=== PATIENT | female | born 1970 | race Caucasian/White ===

== ENCOUNTER 2025-07-24 21:59 | Emergency (ER) | payer OTHER, SELFPAY ==
--- OUTSIDE RECORDS SUMMARY | 2025-03-07 04:00 | XMS_ITS ---
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 Medication SIG (Take, Route, Frequency, Duration) Notes Start Date End Date Status Benadryl Active Encounters Encounter Location Date Provider Diagnosis [facility] [address] [place] [address] 03/07/2025 Karen Molina Plan Of Treatment Next Appt Details Provider Name:Karen bassett, 08/04/2025 01:00:00 PM, [facility] [address], [address], Provider Name:Karen bassett, 08/04/2025 01:10:00 PM, [address], [facility] [address], [place], [address], Provider Name:Karen bassett, 08/10/2026 01:00:00 PM, [address], [employer] [address], [place], [address], Progress Notes * MICA MUNOZDODavon:1970 (55 yo F)Acc No.[id number]:03/07/2025 PROGRESS NOTES Patient: MICA BRADEN Appointment Provider: Mikayla Molina M.D. :1970 A ge:55 Y S ex:Female Date:03/07/2025 Address:[address] [place], [place] [id number] Pcp:ELSA SOTOMAYOR MD Subjective: * Chief Complaints: * 1 . 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 * Medical History: * Medications: T aking Benadryl Objective: * Vitals: Assessment: Plan: * Treatment: * Images: Billing Information: * Visit Code: * Procedure Codes: * Electronic signature of Nayeli Molina MD on 07/25/2025 at 01:26 AM EDT Sign off status: Pending * Appointment Provider: Mikayla Molina M.D. Date: 0 03/07/2025 Generated for Carmine torres/Karen/Laya on: 1 01:26 AM EDT
[2025-07-24 22:10] VITALS: BP 147/85; PULSE 87; RESP 18; TEMP 36.8; O2SAT 97; BMI 33.1
[2025-07-24 22:26] LABS: MANUAL DIFF FLAG NO
[2025-07-24 22:27] LABS: Hematocrit 38.8 % (37.0-47.0); Hemoglobin 13.4 g/dl (12.0-16.0); Imm Gran Abs Auto 0.03 X10*3/uL (0.00-0.03); Imm Gran Pct Auto 0.3 % (0.0-0.4); Lymphocytes Absolute Auto 3.5 X10*3/uL (1.2-4.9); Mean Corpuscular HGB Conc 34.5 g/dl (31.0-35.0); Mean Corpuscular Hemoglobin 30.8 pg (27.0-33.0); Mean Corpuscular Volume 89.2 fL (80.0-98.0); NRBC Abs Auto 0.000 X10*3/uL (0.0-0.012); NRBC Pct Auto 0.0 /100WBC (0.0-0.2); Platelet Count 287 X10*3/uL (160-400); Red Blood Count 4.35 X10*6/uL (4.20-5.50); White Blood Count 9.2 X10*3/uL (4.8-10.8)
[2025-07-24 22:46] LABS: Alanine Aminotransferase 14 U/L (0-31); Albumin Level 4.3 g/dL (3.5-5.0); Alkaline Phosphatase 64 U/L (39-117); Anion Gap 13 (12-20); Aspartate Amino Transferase 16 U/L (5-31); Blood Urea Nitrogen 19 mg/dL (9-16); Calcium 9.2 mg/dL (8.4-10.2); Carbon Dioxide 23 mmol/L (22-29); Chloride 109 mmol/L (96-108); Creatinine Clr Calc Pharmacy 78.8; Estimated Glomerular Filt Rate > 60; Potassium 3.9 mmol/L (3.3-5.1); Sodium 141 mmol/L (135-145); Total Protein 7.1 g/dL (6.5-8.0)
--- OUTSIDE RECORDS SUMMARY | 2025-07-25 01:26 | XMS_ITS | Patient Health Record ---
Author Organization [facility] Address [address] [place] [address] Care Team Providers Care Electric Gas Appliances Demonstrator Name Role Phone ELSA SOTOMAYOR MD Primary Care Provider Karen Lovell [phone] Allergies Allergen (clinical drug ingredient) Drug/Non Drug Allergy documented on EMR Reaction Allergy Type Onset Date Status morphine Morphine Hypotension Drug Allergy Activ e Results Component Value Reference Range Notes SURGICAL PATHOLOGY Reviewed date:06/13/2025 01:25:43 PM Interpretation: Performing Lab:Testing performed or reported by [facility], a Service of [facility], [address] [place] [address] Yohan Lobo MD, Fine Artist CLIA# [id number] Notes/Report: Patient Name: MICA MUNOZ Lab Patient : 1970 (Age: 55) Collection Date: 06/06/2025 Accession Date: 06/06/2025 Sign Out Date: 06/12/2025 Tissue Source: 1:EMB Final Diagnosis: Endometrium, biopsy: - Disordered proliferative endometrium with stromal breakdown. - Polypoid fragment of endometrium with fibrotic stroma possibly derived from endometrial polyp without atypia. Primary Pathologist:Yolette Self M.D. electronically signed out by: Yolette Self M.D. / MONIKA Clinical History: Abnormal uterine bleeding Gross Description: Labeled endometrial biopsy . Received in formalin is a 6.1 x 5.4 x 0.2 cm aggregate of red, albert tissue with translucent mucus. The specimen is entirely submitted. 1 through 3-multiple pieces. (EG)* As of December 26, 2023, the specimen processing and staining is performed at [facility], [address] [place] [address] (CLIA#[id number]). Its performance characteristics determined by [facility]. Vanessa Cornejo M.D. Fine Artist of Surgical Pathology, Rachael Villaseñor M.D. Fine Artist Cytopathology Phone #: [phone], On-Call Pathologist: [id number] Urinalysis Reviewed date:07/14/2025 02:35:57 PM Interpretation: Performing Lab: Notes/Report: PH 5.0 PROTEIN Neg GLUCOSE Neg BLOOD Neg Reason For Referral No Information Social History Tobacco Use: Social History Observation Description Date Details (start date - stop date) Never Smoker NA - NA Sexual History Question Answer Notes Had sex in the past 12 months (vaginal, oral, or anal)? Yes with Men only Prevention strategies discussed: Other AUDIT-C (Standard) Question Answer Notes Did you have a drink containing alcohol in the p ast year? No Points 0 Interpretation Negative Tobacco Control (Standard) Question Answer Notes Tobacco use: Nonsmoker Problems Problem Type SNOMED Code ICD Code Onset Dates Problem Status W/U Status Risk Notes Problem Pure hyperglyceridemia (559755199) Pure hyperglyceridemia (E78.1) Active confirmed Problem Sleep apnea (99195982) Sleep apnea, unspecified (G47.30) Active confirmed Problem Asthma (590146672) Other asthma (J45.998) Active confirmed Problem Diverticulitis of colon (448234176) Diverticulitis of intestine, part unspecified, without perforation or abscess without bleeding (K57.92) Active confirmed Problem Radiculopathy due to lumbar intervertebral disc disorder (805581574683427) Intervertebral disc disorders with radiculopathy, lumbar region (M51.16) Active confirmed Problem Abnormal vaginal bleeding (949092814) Other specified abnormal uterine and vaginal bleeding (N93.8) Active confirmed Vital Signs Temperature 98.1 degrees Fahrenheit 07/14/2025 Blood pressure diastolic 78 mm Hg 07/14/2025 Height 62 in 07/14/2025 Blood pressure systolic 108 mm Hg 07/14/2025 Weight 183 lbs 07/14/2025 BMI 33.47 kg/m2 07/14/2025 Encounters Encounter Location Date Provider Diagnosis [facility] [address] [place] [address] 03/07/2025 Karen Molina [facility] [address] [place] [address] 06/06/2025 Karen Molina Other specified abnormal uterine and vaginal bleeding N93.8 [address] [facility] [place] [address] 07/14/2025 Karen Molina Encounter for gynecological examination (general) (routine) without abnormal findings Z01.419 ; Encounter for screening mammogram for malignant neoplasm of breast Z12.31 and Personal history of other diseases of the female genital tract Z87.42 Assessments Encounter Date Diagnosis (ICD Code) Assessment Notes Treatment Notes Treatment Clinical Notes Section Notes 06/06/2025 Other specified abnormal uterine and vaginal bleeding (ICD-10 - N93.8) DISCUSSED COMMON CAUSES OF ABNORMAL BLEEDING. RECOMMENDED EMB AND SHE AGREED. EMB WAS PERFORMED AND SPECIMEN SENT TO PATHOLOGY. AYGESTIN TAPER WAS RECOMMENDED. RX AND DETAILED INSTRUCTIONS WERE GIVEN. BLEEDING SHOULD STOP AND SHE MAY BLEED HEAVILY AFTER DISCONTINUING THE MEDICATION. COUNT FIRST DAY OF BLEEDING DAY 1 AND TAKE AYGESTIN 5 MG DAILY FROM DAYS 16 TO 25 Q MONTH. SCHEDULE HSONO. DISCUSSED THIS PROCEDURE AND SHE AGREED. 07/14/2025 Encounter for screening mammogram for malignant neoplasm of breast (ICD-10 - Z12.31) REGULAR MAMMOGRAMS AND SBE'S WERE RECOMMENDED. 07/14/2025 Encounter for gynecological examination (general) (routine) without abnormal findings (ICD-10 - Z01.419) NO PAP TEST, DUE IN 2025. 07/14/2025 Personal history of other diseases of the female genital tract (ICD-10 - Z87.42) DISCUSSED PREVIOUS HX OF ABNORMAL BLEEDING. WILL PROCEED WITH HSONO. MONITOR MENSES AND IF ABNORMAL BLEEDING RECURS, CONSIDER CYCLICAL AYGESTIN OR MIRENA IUD. Plan Of Treatment Pending Test Test Name Order Date MM Digital Mammo Screening 02/10/2023 MM Digital Mammo Screening 02/23/2024 MM Digital Mammo Screening 07/14/2025 Next Appt Details Provider Name:Karen Topete Brookbernabe serjio, 08/04/2025 01:00:00 PM, [address], [place], [address], Provider Name:Karen Topete Angelo bassett, 08/04/2025 01:10:00 PM, [address], [place], [address], Provider Name:Karen bassett, 08/10/2026 01:00:00 PM, [address], [address], [place], [address], Insurance Providers Payer Name Payer Address Payer Phone Subscriber Number Group Number Insured Name Patient Relationship to Insured Coverage Start Date Coverage End Date [employer] [place] [address] [address] [place] [address] [id number] MICA MUNOZ Self - patient is the insured Medical (General) History Medical History History ICD Code Other asthma J45.998 Diverticulitis of intestine, part unspecified, without perforation or abscess without bleeding K57.92 Pure hyperglyceridemia E78.1 Intervertebral disc disorders with radic ulopathy, lumbar region M51.16 Sleep apnea, unspecified G47.30 Other specified abnormal uterine and vag inal bleeding N93.8 Surgical History Surgery Date(Month/Year) Colonoscopy with Polypectomy 12/23/19 Decompression Laminectomy of Lumbar Spin e 12/17/16 x 2 Colonoscopy Bilateral Tubal Ligation Hospitalization History Reason Date(Month/Year) See Surgical Hx
--- OUTSIDE RECORDS SUMMARY | 2025-07-25 01:26 | XMS_ITS ---
Author Name [facility] Organization Unknown History of Medication Use Medication Directions Dispensed Refills Start Date End Date Stat us buspirone 10 mg tablet Take 1 tablet twice a day by oral route. 03/24/2024 active fenofibrate 54 mg tablet Take 1 tablet every day by oral route. 03/24/2024 active mirtazapine 15 mg tablet Take 1 tablet (15 mg total) by mouth every night at bedtime. 10/23/2022 3 completed ergocalciferol (vitamin D2) 1,250 mcg (50,000 unit) capsule Take 1 capsule (50,000 Units total) by mouth once a week. 12/30/2021 2 completed albuterol sulfate HFA 90 mcg/actuation aerosol inhaler INHALE 1-2 PUFFS BY MOUTH EVERY 4-6 HOURS NEEDED FOR COUGH 11/20/2021 active coenzyme Q10 (ubiquinol) 100 mg capsule Take by mouth. 12/31/2019 3 completed azithromycin 250 mg tablet TAKE 2 TABLETS BY MOUTH TODAY, THEN TAKE 1 TABLET DAILY FOR 4 DAYS DIRECTED 4 completed benzonatate 100 mg capsule TAKE 1 CAPSULE BY MOUTH THREE TIMES A DAY 4 completed fluticasone propionate 50 mcg/actuation nasal spray,suspension SPRAY 2 SPRAYS INTRANASALLY DAILY FOR 10 DAYS 4 completed Paxlovid 300 mg (150 mg x 2)-100 mg tablets in a dose pack TAKE 3 TABLETS BY MOUTH TWICE A DAY DIRECTED FOR 5 DAYS 4 completed mirtazapine 7.5 mg tablet TAKE 1 TABLET (7.5 MG TOTAL) BY MOUTH EVERY NIGHT AT BEDTIME 3 completed peg-electrolyte solution 420 gram oral solution FOLLOW DIRECTIONS FROM 3 completed fenofibrate 54 mg tablet active buspirone 10 mg tablet active cetirizine 10 mg tablet TAKE 1 TABLET BY MOUTH EVERY DAY active Allergies Allergen Reaction Severity Comment Documented Date Source Statu s MORPHINE [facility] Problems Problem Status Onset Date Problem Type Date of Resoluti on Source Acute asthma active 2021-12-19 ProblemAct [facility] Chronic stress disorder active 2023-10-30 ProblemAct [facility] Hypertriglyceridemia active 2021-12-19 ProblemAct [facility] Obesity active 2023-06-19 ProblemAct [facility] A Tubular adenoma of colon active 2023-10-30 ProblemAct [facility] Immunizations Vaccine Date Source Lot Number Status SARS-COV-2 (COVID-19) vaccin e, mRNA, spike protein, LNP, preservative free, 100 mcg/0.5mL dose 12/07/2020 [facility] completed SARS-COV-2 (COVID-19) vaccin e, mRNA, spike protein, LNP, preservative free, 100 mcg/0.5mL dose 11/09/2020 [facility] completed tetanus toxoid, reduced diph theria toxoid, and acellular pertussis vaccine, adsorbed 05/02/2020 [facility] completed pneumococcal polysaccharide vaccine, 23 valent 08/27/2017 [facility] UNK completed tetanus toxoid, reduced diph theria toxoid, and acellular pertussis vaccine, adsorbed 01/14/2011 [facility] [id number] completed Encounters Encounter Type Encounter Reason Primary Diagnosis Location Date Ambulatory [facility] 04/29/2024 Amb[facility] 04/23/2024 Ambulatory [facility] 02/18/2024 Care Team Organization Name Specialty Phone Email Start Date End [facility] 05/25/2024
--- OUTSIDE RECORDS SUMMARY | 2025-07-25 01:26 | XMS_ITS | Clinical Summary ---
Author Organization [facility] [employer] [facility] Address [address] [place] [address] Care Team Providers Care Him Analyst Name Role Phone Neil Askew MD Primary Care Provider [phone] Allergies Active Allergy Reactions Criticality Noted Date Comments Morphine 12/19/2021 Other reaction(s): Hypotension due to drugs Medications Medication Sig Dispensed Refills Start Date End Date Status Ubiquinol (Qunol CoQ10/Ubiquinol/Dariel) 100 MG CAPS Take by mouth. 0 12/31/2019 Active albuterol 108 (90 Base) MCG/ACT inhaler INHALE 1-2 PUFFS BY MOUTH EVERY 4-6 HOURS NEEDED FOR COUGH 0 11/20/2021 Active mirtazapine (REMERON) 7.5 MG tablet Take 1 tablet (7.5 mg total) by mouth every night at bedtime. 90 tablet 3 10/23/2022 Active Active Problems Problem Noted Date Diagnosed Date Mild asthma with acute exacerbation 12/19/2021 Insomnia 12/19/2021 Hypertriglyceridemia 12/19/2021 Immunizations Name Administration Dates Next Due Covid-19 (Moderna 12+) 100mcg/0.5mL dosage 12/07,11/09/2020 Pneumococcal Polysaccharide PPSV23 08/27/2017 Tdap 05/02/2020,01/14/2011 Family History Medical History Relation Name Comments Heart disease Father Heart disease Mother Relation Name Status Comments Father Mother Social History Tobacco Use Types Packs/Day Years Used Date Smoking Tobacco: Never Smokeless Tobacco: Never Alcohol Use Standard Drinks/Week Comments Yes 0 (1 standard drink = 0.6 oz pur e alcohol) Social Sex and Gender Information Value Date Recorded Sex Assigned at Not on file Gender Identity Not on file Sexual Orientation Not on file Job Start Date Occupation Industry Not on file Not on file Not on file Last Filed Vital Signs Vital Sign Reading Time Taken Comments Blood Pressure 125/69 06/30/2022 10:13 AM EDT Pulse 83 06/30/2022 10:13 AM EDT Temperature 36.1 C (97 F) 06/30/2022 10:13 AM EDT Respiratory Rate 17 06/30/2022 10:1 3 AM EDT Oxygen Saturation 99% 06/30/2022 10: 13 AM EDT Inhaled Oxygen Concentration - - Weight 80.2 kg (176 lb 12.8 oz) 022 10:13 AM EDT Height 160 cm (5' 3 ) 06/30/2022 10:13 AM EDT Body Mass Index 31.32 06/30/2022 10:13 AM EDT Plan of Treatment Health Maintenance Due Date Last Done Comments Hepatitis B Vaccines (1 of 3 - 3-dose series) 1970 Hepatitis C Screening 1970 Cervical Cancer Screening (Pap Smear) 01/19/1992 Colon Cancer Screening (Colonoscopy) 01/19/2016 Shingrix-Zoster Vaccine (1 of 2) 2021 BMI Counseling 06/30/2023 06/30/2022, 12/19/2021 Depression Screening 06/30/2023 06/30/2022 Preventative Health Evaluation 06/30/2023 06/30/2022, 06/30/2022 Breast Cancer Screening (Mammogram) 07/02/2023 07/02/2021 COVID-19 Vaccine ( season) 2025 12/07/2020, 11/09/2020 DTap / Tdap / Td (3 - Td or Tdap) 05/02/2030 05/02/2020, 01/14/2011 Pneumococcal Vaccine Aged Out 08/27/2017 No long er eligible based on patient's age to complete this topic Influenza Vaccine Discontinued RSV Ped < 20 months Aged Out No longe r eligible based on patient's age to complete this topic Care Teams Him Analyst Relationship Specialty Start Date End Date Neil Askew MD PCP - General Internal Medicine 12/10/21
[2025-07-25 02:01] VITALS: BP 131/88; PULSE 70; RESP 18; O2SAT 95
--- NOTE | 2025-07-25 02:43 | ED.EXTPRO ---
HPI - Extremity Problem General Chief complaint: Extremity Problem Stated complaint: leg pain in both legs Time Seen by Provider: 07/25/25 00:59 Source: patient Mode of arrival: ambulatory Limitations: no limitations History of Present Illness ED Provider: Dr. Rachelle Menchaca HPI Narrative: 55-year-old female with no significant past medical history presenting with bilateral lower extremity cramping that has been ongoing for the last 24 hours or so. Describes severe muscle cramps that are worse when she is resting. Pain is mostly located in the lower extremities. There is no unilateral pain or swelling. In fact neither one of her legs appear to be very swollen according to her. She denies recent illness. No significant exertion or exercise. Denies fever, chest pain, difficulty breathing, nausea, vomiting, bowel changes, urinary complaints, skin rashes, known sick contacts or recent travel. Has never had this issue before. Admits to occasional Charley horse or leg cramps but never to this extent. No reported injury. Related Data Previous Rx's ?Medication ?Instructions ?Recorded cyclobenzaprine 10 mg tablet 10 mg PO TID #10 tabs 07/25/25 Allergies Allergy/AdvReac Type Severity Reaction Status Date / Time morphine AdvReac Hypotension Verified 07/24/25 22:11 Review of Systems Review of Systems: as per HPI, full review of systems performed and negative but for the above mentioned pertinent positives and negatives. [facility] Social History Social History Advance Directives: No Advance Directives Information Provided: Yes Physical Exam Exam: Exam: GENERAL: Well-Appearing, conversant, no acute distress. SKIN: Normal skin color for ethnicity, warm, dry, no rashes noted. HEENT:? Normocephalic, atraumatic, no stridor, posterior oropharynx nonerythematous, dentition intact, EOMI. NECK: Soft, supple, full ROM, midline structures nontender, no step-offs, no deformities, no lymphadenopathy. CHEST: Heart regular rate and rhythm, no murmurs, symmetric chest rise and fall. PULMONARY: Clear to auscultation bilaterally, no labored breathing, no wheezes/rhales/rhonchi. ABDOMINAL: Soft, nondistended, nontender, positive bowel sounds in all quadrants. : Deferred. MUSCULOSKELETAL: Normal tone, full range of motion, no deformities, no peripheral edema, negative Kathleen's sign bilaterally. NEURO: Alert and oriented x3, CN II through XII intact, equal strength and sensation bilateral upper and lower extremities, no focal neurologic deficits.? PSYCHIATRIC: Normal affect, fluid speech, good eye contact and appropriate demeanor. Vital Signs: Vital Signs: Last Vital Signs Temp 98.0 F 07/25/25 02:59 Pulse 70 07/25/25 02:59 Resp 18 07/25/25 02:59 BP 131/88 07/25/25 02:59 Pulse Ox 95 07/25/25 02:59 O2 Del Method Room Air 07/25/25 02:59 BMI result Body Mass Index 33.1 Medications Administered Discontinued Medications Generic Name Dose Route Start Last Admin Trade Name Freq PRN Reason Stop Dose Admin Magnesium Oxide 400 mg 07/25/25 02:43 07/25/25 02:53 Magnesium Oxide 400 Mg Tablet PO 07/25/25 02:44 400 mg ONCE ONE Administration Potassium Chloride 20 meq 07/25/25 02:43 07/25/25 02:53 Potassium Chloride Packet 20 Meq Packet PO 07/25/25 02:44 20 meq ONCE ONE Administration Medical Decision Making Medical Decision Making [facility] Narrative: 55-year-old female no significant past medical history presenting with bilateral leg cramps ongoing for the last 24 hours. Differential diagnosis includes muscle spasm, rhabdomyolysis, electrolyte abnormality, renal insufficiency, DVT or other vascular abnormality including claudication, among others. Patient is nontoxic, with normal vital signs and relatively normal blood work. CPK is mildly elevated. There is no clinical history to suggest DVT. Wells criteria is 0. Very low suspicion at this time given her exam and history. That being said, we had an extensive discussion regarding importance of follow-up with primary care, magnesium and potassium supplementation as well as strict return precautions should her symptoms change in any way. Provided with prescription for cyclobenzaprine. Discharged home in stable condition Differential Diagnosis Differential Diagnoses: The differential diagnosis associated with the presentation includes (as above) Admission/Observation Consideration of admission/observation: Escalation of care including admission/observation considered Lab Data [facility] Lab Attestation statement: I reviewed the patient's lab results. 07/24/25 22:22 07/24/25 22:22 Labs: Lab Results 07/24/25 Range/Units 22:22 WBC 9.2 (4.8-10.8) X10*3/uL RBC 4.35 (4.20-5.50) X10*6/uL Hgb 13.4 (12.0-16.0) g/dl Hct 38.8 (37.0-47.0) % MCV 89.2 (80.0-98.0) fL MCH 30.8 (27.0-33.0) pg MCHC 34.5 (31.0-35.0) g/dl RDW 12.9 (11.0-16.0) % Plt Count 287 (160-400) X10*3/uL MPV 10.2 (9.4-12.3) fL Immature Gran % (Auto) 0.3 (0.0-0.4) % Neut % (Auto) 51.5 (45-73) % Lymph % (Auto) 37.8 (20-40) % Luna % (Auto) 7.5 (2-11) % Eos % (Auto) 2.6 (0-4) % Baso % (Auto) 0.3 (0-2) % Lymph # (Auto) 3.5 (1.2-4.9) X10*3/uL Luna # (Auto) 0.7 (0.1-1.2) X10*3/uL Eos # (Auto) 0.2 (0.0-0.4) X10*3/uL Baso # (Auto) 0.0 (0.0-0.2) X10*3/uL Abs Immat Gran (auto) 0.03 (0.00-0.03) X10*3/uL Absolute Neuts (auto) 4.8 (2.0-8.3) x10*3/uL Absolute Nucleated RBC 0.000 (0.0-0.012) X10*3/uL Nucleated RBC % (auto) 0.0 (0.0-0.2) /100WBC Sodium 141 (135-145) mmol/L Potassium 3.9 (3.3-5.1) mmol/L Chloride 109 H (96-108) mmol/L Carbon Dioxide 23 (22-29) mmol/L Anion Gap 13 (12-20) BUN 19 H (9-16) mg/dL Creatinine 0.81 (0.5-1.4) mg/dL Estim Creat Clear Calc 78.8 Estimated GFR > 60 Random Glucose 93 (60-115) mg/dL Calcium 9.2 (8.4-10.2) mg/dL Total Bilirubin 0.3 (0.0-1.0) mg/dL AST 16 (5-31) U/L ALT 14 (0-31) U/L Alkaline Phosphatase 64 (39-117) U/L Total Creatine Kinase 146 H (26-140) U/L Total Protein 7.1 (6.5-8.0) g/dL Albumin 4.3 (3.5-5.0) g/dL Prescription Management I considered prescription management with: Pain Medication Discharge Plan Discharge Clinical Impression: Bilateral leg cramps Patient Disposition: Home, Self-Care Instructions: Leg Cramps (ED) Additional Instructions: Use cyclobenzaprine as needed for muscle cramps and spasms while you are resting. Do not use this medication if you are driving as it can make you drowsy. Return to the emergency department immediately with any new or worsening symptoms including: Worsening pain despite medication, fevers greater than 100 degrees, redness that tracks up your legs, chest pain, difficulty breathing, any new symptom that concerns you. Call 911 with any medical emergency. Follow up with your primary care doctor as soon as possible to have further testing performed. You may take supplements for potassium and magnesium as needed to help with muscle cramping. Prescriptions: New cyclobenzaprine 10 mg tablet 10 mg PO TID Qty: 10 0RF Interventions: ED Discharge Assessment Last Done: 07/25/25 02:59 Discharge Date/Time: 07/25/25 03:01 Print Language: Gibraltarian
[2025-07-25] MEDS: Potassium Chloride Packet 20 MEQ PACKET PO (02:53)
[2025-07-25 02:59] VITALS: BP 131/88; PULSE 70; RESP 18; TEMP 36.7; O2SAT 95
== END 2025-07-25 03:01 | disposition home or self-care (01) ==
PROVIDERS: Emergency Provider Emergency Medicine
DX: R25.2 Cramp and spasm (principal)
CPT/HCPCS: 36415; 80053; 82550; 85025; 99283